=== PATIENT | female | born 1945 ===

== ENCOUNTER 2017-07-12 14:36 | Emergency (ER) | payer OTHER ==
[2017-07-12 14:36] VITALS: BMI 26.0
[2017-07-12 14:49] VITALS: TEMP 97.4; O2SAT 98
[2017-07-12 16:12] LABS: BASO % 0.6 % (0.0-2.0); EOS # 0.1 K/uL (0.0-0.7); EOS % 2.1 % (0.0-4.0); LYMPH # 1.6 K/uL (1.0-4.3); LYMPH % 24.3 % (20.0-40.0); MEAN CELL VOLUME 85.4 fL (81.0-99.0); MEAN CORPUSCULAR HEMOGLOBIN 28.5 pg (27.0-31.0); MEAN CORPUSCULAR HGB CONC 33.4 g/dL (33.0-37.0); MEAN PLATELET VOLUME 10.4 fL (7.2-11.7); MONO # 0.5 K/uL (0.0-0.8); MONO % 7.2 % (0.0-10.0); NEUT # 4.3 K/uL (1.8-7.0); NEUT % 65.8 % (50.0-75.0); RBC 5.26 Mil/uL (3.80-5.20); RED CELL DISTRIBUTION WIDTH 13.6 % (11.5-14.5); WHITE BLOOD COUNT 6.6 K/uL (4.8-10.8)
[2017-07-12 16:29] LABS: ALB/GLOB RATIO 1.3 (1.0-2.1); ALBUMIN 4.3 g/dL (3.5-5.0); ALT/SGPT 21 U/L (9-52); AST/SGOT 23 U/L (14-36); BLOOD UREA NITROGEN 14 mg/dL (7-17); GFR AFRICAN-AMERICAN > 60; GFR NON-AFRICAN AMERICAN > 60; LIPASE 69 U/L (23-300)
[2017-07-12 16:42] LABS: B-TYPE NATRIURETIC PEPTIDE 59.9 pg/mL (0-900)
--- NOTE | 2017-07-12 16:44 | C.PDOC ---
History Of Present Illness 71-year-old female, presents to the emergency department with complaints of anxiety, generalized weakness and body aches. Patient states she is feeling "fluttering" in her stomach. Patient denies nausea/vomiting, fevers or chills. All other Hx limited because patient is a poor historian Time Seen by Provider: 07/12/17 15:29 Chief Complaint (Nursing): Medical Clearance History Per: Patient Past Medical History Reviewed: Historical Data, Nursing Documentation, Vital Signs Vital Signs: Last Vital Signs Temp 97.4 F L 07/12/17 14:45 Pulse 69 07/12/17 18:37 Resp 16 07/12/17 18:37 BP 146/77 07/12/17 18:37 Pulse Ox 98 07/15/17 12:58 - Medical History PMH: Gastritis, Hypercholesterolemia Denies: Colonic Polyps, Fractures, Chronic Kidney Disease Surgical History: Denies: Endoscopy - [facility] Procedures ENDO RECTUM POLYPECTOMY (01/24/14) REPAIR CUL-DE-SAC, VIA NATURAL OR ARTIFICIAL OPENING (06/04/15) REPAIR PELVIC SUBCU/FASCIA, PERC APPROACH (06/04/15) RESECTION OF CERVIX, VIA NATURAL OR ARTIFICIAL OPENING (06/04/15) RESECTION OF UTERUS, VIA NATURAL OR ARTIFICIAL OPENING (06/04/15) Family History: States: No Known Family Hx - Social History Hx Tobacco Use: No Hx Alcohol Use: No Hx Substance Use: No - Immunization History Hx Tetanus Toxoid Vaccination: Yes Hx Influenza Vaccination: No Hx Pneumococcal Vaccination: Yes Review Of Systems Constitutional: Positive for: Weakness, Malaise. Negative for: Fever, Chills Gastrointestinal: Negative for: Nausea, Vomiting Psych: Positive for: Anxiety. Negative for: Suicidal ideation Physical Exam - Physical Exam Appears: Non-toxic, No Acute Distress Skin: Normal Color, Warm, Dry, No Rash Head: Normacephalic Eye(s): bilateral: PERRL Nose: Normal Oral Mucosa: Moist Lips: Normal Appearing Neck: Normal ROM Cardiovascular: Rhythm Regular, No Murmur Respiratory: Normal Breath Sounds, No Accessory Muscle Use Gastrointestinal/Abdominal: Normal Exam, Bowel Sounds, Soft Extremity: Normal ROM, No Deformity, No Swelling Neurological/Psych: Oriented x3, Normal Speech ED Course And Treatment - Laboratory Results Result Diagrams: 07/12/17 16:09 07/12/17 16:09 ECG: Interpreted By Me, Viewed By Me ECG Rhythm: Sinus Rhythm ECG Interpretation: No Acute Changes Rate From EC O2 Sat by Pulse Oximetry: 98 Medical Decision Making Medical Decision Making: Patient will be discharged for outpatient f/u with PMD. All questions answered. patient states resolution of symptoms, no further complaints, will discharge home to follow up with pmd in 2 days. Disposition Counseled Patient/Family Regarding: Studies Performed, Diagnosis, Need For Followup, Rx Given - Disposition Disposition: HOME/ ROUTINE Disposition Time: 18:37 Condition: STABLE Additional Instructions: follow up with your doctor in 2 days call to make an appointment take medications as prescribed return to ER if symptoms worsens or progress Prescriptions: ALPRAZolam [Xanax] 0.25 mg PO TID PRN #8 tab PRN Reason: Anxiety Famotidine [Pepcid] 20 mg PO BID #20 tab Instructions: Gastritis, Anxiety, Adult (DC) Forms: Gen Discharge Inst Swedish, [employer] (Swedish) Print Language: MONEGASQUE - Clinical Impression Clinical Impression: Nervousness, Gastritis - Scribe Statement The provider has reviewed the documentation as recorded by the Scribe (Hanh Garrett) All medical record entries made by the Scribe were at my direction and personally dictated by me. I have reviewed the chart and agree that the record accurately reflects my personal performance of the history, physical exam, medical decision making, and the department course for this patient. I have also personally directed, reviewed, and agree with the discharge instructions and disposition.
--- NOTE | 2017-07-12 17:49 | RAD ---
HISTORY: SOB COMPARISON: 05/17/2015 TECHNIQUE: Chest PA and lateral FINDINGS: LUNGS: No active pulmonary disease. PLEURA: No significant pleural effusion identified. No pneumothorax apparent. CARDIOVASCULAR: No radiographic findings to suggest acute or significant cardiovascular disease. OSSEOUS STRUCTURES: No significant abnormalities. VISUALIZED UPPER ABDOMEN: Normal. OTHER FINDINGS: None. IMPRESSION: No active disease. No significant interval change compared to the prior examination(s).
[2017-07-12 18:22] LABS: SQUAMOUS EPITHIAL 2 /hpf (0-5); URINE BACTERIA OCC (<OCC); URINE BILIRUBIN NEGATIVE (NEGATIVE); URINE BLOOD 1+ (NEGATIVE); URINE CLARITY Clear (Clear); URINE COLOR Straw (YELLOW); URINE GLUCOSE (UA) NORMAL (Normal); URINE LEUKOCYTE ESTERASE NEG Leu/uL (Negative); URINE PROTEIN NEGATIVE (NEGATIVE); URINE UROBILINOGEN NORMAL mg/dL (0.2-1.0)
[2017-07-12 18:37] VITALS: BP 146/77; PULSE 69; RESP 16
--- NOTE | 2017-07-14 23:22 | CARD ---
APPROVED REPORT EKG Measurement Heart [id number] <Conclusion> Normal sinus rhythm Normal ECG
== END 2017-07-12 19:25 | disposition home or self-care (01) ==
LOC: C.ER 14:36
DX: R45.0 Nervousness (principal); K29.70 Gastritis, unspecified, without bleeding
CPT/HCPCS: 71046; 80053; 81001; 83690; 83735; 83880; 84484; 85025; 93005; 96374; 99283; C9113

== ENCOUNTER 2018-04-15 14:15 | Emergency (ER) | payer OTHER ==
[2018-04-15 14:20] VITALS: BMI 27.1
--- NOTE | 2018-04-15 15:27 | C.PDOC ---
History Of Present Illness 72 y/o female comes in stating that for the past 4 days, shes had left-sided flank pain that radiates to LUQ. Patient denies any nausea, vomiting, diarrhea, dysuria, or hematuria. Patient does have a history of gastritis and states she had similar pain from before. Time Seen by Provider: 04/15/18 14:31 Chief Complaint (Nursing): Female Genitourinary History Per: Patient History/Exam Limitations: no limitations Onset/Duration Of Symptoms: Days Current Symptoms Are (Timing): Still Present Past Medical History Reviewed: Historical Data, Nursing Documentation, Vital Signs Vital Signs: Last Vital Signs Temp 97.7 F 04/15/18 14:20 Pulse 75 04/15/18 14:20 Resp 17 04/15/18 14:20 BP 149/84 04/15/18 14:20 Pulse Ox 100 04/15/18 14:20 - Medical History PMH: Gastritis, Hypercholesterolemia Denies: Colonic Polyps, Fractures, Chronic Kidney Disease Surgical History: Denies: Endoscopy - [facility] Procedures ENDO RECTUM POLYPECTOMY (01/24/14) REPAIR CUL-DE-SAC, VIA NATURAL OR ARTIFICIAL OPENING (06/04/15) REPAIR PELVIC SUBCU/FASCIA, PERC APPROACH (06/04/15) RESECTION OF CERVIX, VIA NATURAL OR ARTIFICIAL OPENING (06/04/15) RESECTION OF UTERUS, VIA NATURAL OR ARTIFICIAL OPENING (06/04/15) Family History: States: No Known Family Hx - Social History Hx Tobacco Use: No Hx Alcohol Use: No Hx Substance Use: No - Immunization History Hx Tetanus Toxoid Vaccination: Yes Hx Influenza Vaccination: No Hx Pneumococcal Vaccination: Yes Review Of Systems Constitutional: Negative for: Fever Cardiovascular: Negative for: Chest Pain Respiratory: Negative for: Shortness of Breath Gastrointestinal: Positive for: Other (Left-sided flank pain radiating to LUQ). Negative for: Nausea, Vomiting, Diarrhea Genitourinary: Negative for: Dysuria, Hematuria Physical Exam - Physical Exam Appears: Non-toxic, No Acute Distress Skin: Warm, Dry Head: Atraumatic, Normacephalic Eye(s): bilateral: Normal Inspection Oral Mucosa: Moist Neck: Supple Chest: Symmetrical Cardiovascular: Rhythm Regular, No Murmur Respiratory: Normal Breath Sounds, No Rales, No Rhonchi, No Wheezing Gastrointestinal/Abdominal: Soft, No Tenderness, No Guarding, No Rebound Extremity: Bilateral: Atraumatic, Normal Color And Temperature, Normal ROM Neurological/Psych: Oriented x3, Normal Speech ED Course And Treatment - Laboratory Results Result Diagrams: 04/15/18 14:50 04/15/18 14:50 O2 Sat by Pulse Oximetry: 100 (RA) Pulse Ox Interpretation: Normal Medical Decision Making Medical Decision Making: Plan: --Labs --Urinalysis --Toradol 30 mg IV --Abd/Pel CT Mild hematuria noted in UA, CT abd/pelvis ordered to evaluate for kidney stone, given that she has flank pain. All results reviewed and discussed with patient. Will write Rx for pepcid as patient states she previously took it for gastritis. Advised returning to the ED for any new or worsening symptoms. Disposition - Disposition Disposition: HOME/ ROUTINE Disposition Time: 17:55 Condition: STABLE Additional Instructions: ALLIE GARCIA, thank you for letting us take care of you today. Your provider was Adrienne Severino MD and you were treated for BACK PAIN. The emergency medical care you received today was directed at your acute symptoms. If you were prescribed any medication, please fill it and take as directed. It may take several days for your symptoms to resolve. Return to the Emergency Department if your symptoms worsen, do not improve, or if you have any other problems. Please contact your doctor or call one of the physicians/clinics you have been referred to that are listed on the Patient Visit Information form that is included in your discharge packet. Bring any paperwork you were given at dis charge with you along with any medications you are taking to your follow up visit. Our treatment cannot replace ongoing medical care by a primary care provider outside of the emergency department. Thank you for allowing the [facility] team to be part of your care today. If you had an X-Ray or CT scan: A Radiologist will review the ED reading if any change in treatment is needed we will contact you. If you had a blood, urine, or wound culture: It will take several days for the results, if any change in treatment is needed we will contact you. If you had an STI test: It will take 48 hours for the results. Please call after 1 week if you have not heard back. Prescriptions: Acetaminophen [Tylenol] 650 mg PO Q6H 7 Days capsule RX: Famotidine [Heartburn Prevention] 20 mg PO DAILY #20 tablet Instructions: Gastritis (DC) Forms: [employer] (German) Print Language: PALAUAN - Clinical Impression Clinical Impression: Left flank pain - Scribe Statement The provider has reviewed the documentation as recorded by the Zhaneibe Dinora Sandoval Provider Attestation: All medical record entries made by the Zhaneibe were at my direction and personally dictated by me. I have reviewed the chart and agree that the record accurately reflects my personal performance of the history, physical exam, medical decision making, and the department course for this patient. I have also personally directed, reviewed, and agree with the discharge instructions and disposition.
[2018-04-15 15:42] LABS: BASO % 0.5 % (0.0-2.0); EOS # 0.1 K/uL (0.0-0.7); HEMOGLOBIN 14.1 g/dL (11.0-16.0); LYMPH # 1.3 K/uL (1.0-4.3); LYMPH % 21.3 % (20.0-40.0); MEAN CORPUSCULAR HEMOGLOBIN 28.8 pg (27.0-31.0); MONO # 0.5 K/uL (0.0-0.8); MONO % 7.9 % (0.0-10.0); NEUT # 4.2 K/uL (1.8-7.0); NEUT % 69.3 % (50.0-75.0); NRBC % 0.1 % (0.0-2.0); RBC 4.89 Mil/uL (3.80-5.20); RED CELL DISTRIBUTION WIDTH 13.4 % (11.5-14.5)
[2018-04-15 15:43] LABS: MEAN CELL VOLUME 87.4 fL (81.0-99.0)
[2018-04-15 15:56] LABS: ALB/GLOB RATIO 1.6 (1.0-2.1); ALBUMIN 4.2 g/dL (3.5-5.0); ALT/SGPT 27 U/L (9-52); AST/SGOT 26 U/L (14-36); BLOOD UREA NITROGEN 13 mg/dL (7-17); CALCIUM 9.3 mg/dl (8.6-10.4); GFR NON-AFRICAN AMERICAN > 60
[2018-04-15 16:40] LABS: SQUAMOUS EPITHIAL 3 /hpf (0-5); URINE BACTERIA OCC (<OCC); URINE BILIRUBIN NEGATIVE (NEGATIVE); URINE BLOOD 1+ (NEGATIVE); URINE CLARITY Hazy (Clear); URINE COLOR Yellow (YELLOW); URINE GLUCOSE (UA) NORMAL (Normal); URINE LEUKOCYTE ESTERASE NEG Leu/uL (Negative); URINE PROTEIN NEGATIVE (NEGATIVE); URINE UROBILINOGEN NORMAL mg/dL (0.2-1.0)
--- NOTE | 2018-04-15 17:41 | CT ---
Date of service: 04/15/2018 PROCEDURE: CT Abdomen and Pelvis without intravenous contrast HISTORY: flank pain COMPARISON: 09/16/2016 TECHNIQUE: Without contrast.. Contrast dose: 0 Radiation dose: Total exam DLP = 723.43 mGy-cm. This CT exam was performed using one or more of the following dose reduction techniques: Automated exposure control, adjustment of the mA and/or kV according to patient size, and/or use of iterative reconstruction technique. FINDINGS: LOWER THORAX: Unremarkable. LIVER: Unremarkable. No gross lesion or ductal dilatation. GALLBLADDER AND BILE DUCTS: Unremarkable. PANCREAS: Unremarkable. No gross lesion or ductal dilatation. SPLEEN: Unremarkable. ADRENALS: Unremarkable. No mass. KIDNEYS AND URETERS: Right lower pole cortical cyst, 2.9 cm. No change from prior examination. No calculus. No hydronephrosis. Minimal dilatation of the left renal collecting system associated with extrarenal pelvis. Possible mild UPJ obstruction. No right hydronephrosis. No hydroureter or ureteral calculus VASCULATURE: Unremarkable. No aortic aneurysm. There is atherosclerotic calcification of the abdominal aorta. BOWEL: Sigmoid diverticulosis without evidence of diverticulitis. No bowel obstruction. No other abnormal bowel loops are identified. APPENDIX: Unremarkable. Normal appendix. PERITONEUM: Unremarkable. No free fluid. No free air. LYMPH NODES: Unremarkable. No enlarged lymph nodes. BLADDER: Unremarkable. REPRODUCTIVE: Status post hysterectomy BONES: No acute fracture. Grade 1 anterolisthesis at L4-5 without spondylolysis. OTHER FINDINGS: None. IMPRESSION: No evidence of urinary calculus. Possible mild left UPJ obstruction with minimal dilatation of the left renal collecting system and extrarenal pelvis. Please note that this is unchanged in comparison to the prior CT examination of 09/16/2016. Sigmoid diverticulosis. No evidence of diverticulitis. Status post hysterectomy. Stable right lower pole renal cortical cyst.
[2018-04-15 17:57] VITALS: BP 145/82; PULSE 74; RESP 18; TEMP 97.9
[2018-04-16 18:19] VITALS: O2SAT 100
== END 2018-04-15 18:21 | disposition home or self-care (01) ==
LOC: C.ER 14:15
DX: R10.9 Unspecified abdominal pain (principal); K29.70 Gastritis, unspecified, without bleeding; E78.00 Pure hypercholesterolemia, unspecified
CPT/HCPCS: 74176; 80053; 81001; 85025; 96374; 99285; J1885

== ENCOUNTER 2018-04-16 13:52 | Emergency (ER) | payer OTHER ==
[2018-04-16 13:52] VITALS: BMI 27.1
[2018-04-16 14:05] VITALS: BP 139/83; PULSE 80; RESP 16; TEMP 97.7; O2SAT 100
--- NOTE | 2018-04-16 14:43 | C.PDOC ---
History Of Present Illness 72 year old female presents to the emergency department with complaints of left flank pain for the last few days. Patient was evaluated in the ED yesterday, where she was given medications which provided no relief. Patient reports the pain still remains today, but it is not worse than before. She qualifies the pain as dull, and non-radiating. She denies numbness, weakness, and urinary symptoms. Time Seen by Provider: 04/16/18 14:07 Chief Complaint (Nursing): Back Pain History Per: Patient History/Exam Limitations: no limitations Onset/Duration Of Symptoms: Days Current Symptoms Are (Timing): Still Present Quality Of Discomfort: Dull, "Pain" Associated Symptoms: denies: Incontinence, New Weakness, New Numbness Past Medical History Reviewed: Historical Data, Nursing Documentation, Vital Signs Vital Signs: Last Vital Signs Temp 97.7 F 04/16/18 14:03 Pulse 80 04/16/18 14:03 Resp 16 04/16/18 14:03 BP 139/83 04/16/18 14:03 Pulse Ox 100 04/16/18 14:03 - Medical History PMH: Gastritis, Hypercholesterolemia Denies: Colonic Polyps, Fractures, Chronic Kidney Disease Surgical History: No Surg Hx Denies: Endoscopy - [facility] Procedures ENDO RECTUM POLYPECTOMY (01/24/14) REPAIR CUL-DE-SAC, VIA NATURAL OR ARTIFICIAL OPENING (06/04/15) REPAIR PELVIC SUBCU/FASCIA, PERC APPROACH (06/04/15) RESECTION OF CERVIX, VIA NATURAL OR ARTIFICIAL OPENING (06/04/15) RESECTION OF UTERUS, VIA NATURAL OR ARTIFICIAL OPENING (06/04/15) Family History: States: No Known Family Hx - Social History Hx Tobacco Use: No Hx Alcohol Use: No Hx Substance Use: No - Immunization History Hx Tetanus Toxoid Vaccination: Yes Hx Influenza Vaccination: No Hx Pneumococcal Vaccination: Yes Review Of Systems Genitourinary: Negative for: Dysuria, Frequency, Incontinence Musculoskeletal: Positive for: Back Pain (left flank) Neurological: Negative for: Weakness, Numbness Physical Exam - Physical Exam Appears: Well, Non-toxic, No Acute Distress Skin: Warm, Dry, No Rash Head: Atraumatic, Normacephalic Eye(s): bilateral: Normal Inspection Oral Mucosa: Moist Neck: Normal ROM Chest: Symmetrical Cardiovascular: Rhythm Regular, No Murmur Respiratory: Normal Breath Sounds, No Rales, No Rhonchi, No Wheezing Gastrointestinal/Abdominal: Bowel Sounds, Soft, No Tenderness, No Guarding, No Rebound Extremity: Bilateral: Atraumatic, Normal Color And Temperature, Normal ROM Neurological/Psych: Oriented x3, Normal Speech Gait: Steady ED Course And Treatment O2 Sat by Pulse Oximetry: 100 (RA) Pulse Ox Interpretation: Normal Medical Decision Making Medical Decision Making: Chart reviewed from yesterday, patient had bloodwork and CT A/P with no acute findings. Plan: Toradol 15mg IM Ultram 50mg PO On re-eval patient sitting comfortable in no distress. Reports feeling better a nd comfortable going home with Rx Disposition Counseled Patient/Family Regarding: Diagnosis, Need For Followup, Rx Given - Disposition Referrals: Alicia Boyd MD [Staff Provider] - Disposition: HOME/ ROUTINE Disposition Time: 15:05 Condition: STABLE Additional Instructions: Joseph analgsicos segn sea necesario Seguimiento con berger mdico. Prescriptions: Acetaminophen [Acetaminophen Extra Strength] 500 mg PO Q12 #30 tablet Ibuprofen [Motrin] 600 mg PO Q8 #30 tab traMADol [Ultram] 50 mg PO Q8 #15 Instructions: Low Back Pain (DC) Forms: [employer] (Burmese) Print Language: FAROESE - POA Present On Arrival: None - Clinical Impression Clinical Impression: Low back pain - PA / REED POLISHER / Resident Statement MD/DO has reviewed & agrees with the documentation as recorded. - Scribe Statement The provider has reviewed the documentation as recorded by the Scribe (Paul Brown) All medical record entries made by the Scribe were at my direction and personally dictated by me. I have reviewed the chart and agree that the record accurately reflects my personal performance of the history, physical exam, medical decision making, and the department course for this patient. I have also personally directed, reviewed, and agree with the discharge instructions and disposition.
== END 2018-04-16 15:20 | disposition home or self-care (01) ==
LOC: C.ER 13:52
DX: M54.5 Low back pain (principal)
CPT/HCPCS: 96372; 99283; J1885

== ENCOUNTER 2018-04-18 10:12 | Emergency (ER) | payer OTHER ==
[2018-04-18 10:12] VITALS: BMI 27.1
[2018-04-18 10:16] VITALS: TEMP 98.1; O2SAT 100
[2018-04-18 11:20] LABS: SQUAMOUS EPITHIAL 3 /hpf (0-5); URINE BACTERIA RARE (<OCC); URINE BILIRUBIN NEGATIVE (NEGATIVE); URINE BLOOD 1+ (NEGATIVE); URINE CLARITY Clear (Clear); URINE COLOR Straw (YELLOW); URINE GLUCOSE (UA) NORMAL (Normal); URINE LEUKOCYTE ESTERASE NEG Leu/uL (Negative); URINE PROTEIN NEGATIVE (NEGATIVE); URINE UROBILINOGEN NORMAL mg/dL (0.2-1.0)
[2018-04-18] MEDS ORDERED: Iohexol 240 (50 ml) ONE (11:26)
--- NOTE | 2018-04-18 11:36 | RAD ---
HISTORY: abd pain COMPARISON: Chest x-ray performed 07/12/17 TECHNIQUE: Chest, one view. FINDINGS: Examination limited by habitus and hypoinflation. LUNGS: No focal consolidation. Please note that chest x-ray has limited sensitivity for the detection of pulmonary masses. PLEURA: No significant pleural effusion identified. No definite pneumothorax . CARDIOVASCULAR: Heart size appears within normal limits. Atherosclerotic calcifications present. OSSEOUS STRUCTURES: Osseous demineralization. Degenerative changes. VISUALIZED UPPER ABDOMEN: Unremarkable. OTHER FINDINGS: None. IMPRESSION: No focal consolidation identified.
[2018-04-18 11:38] LABS: BASO % 0.6 % (0.0-2.0); EOS # 0.1 K/uL (0.0-0.7); HEMOGLOBIN 14.7 g/dL (11.0-16.0); LYMPH # 1.2 K/uL (1.0-4.3); LYMPH % 18.3 % (20.0-40.0); MEAN CELL VOLUME 87.4 fL (81.0-99.0); MEAN CORPUSCULAR HEMOGLOBIN 29.3 pg (27.0-31.0); MEAN CORPUSCULAR HGB CONC 33.6 g/dL (33.0-37.0); MONO # 0.5 K/uL (0.0-0.8); NEUT # 4.7 K/uL (1.8-7.0); NEUT % 73.1 % (50.0-75.0); RBC 5.01 Mil/uL (3.80-5.20); RED CELL DISTRIBUTION WIDTH 13.2 % (11.5-14.5); WHITE BLOOD COUNT 6.5 K/uL (4.8-10.8)
[2018-04-18 12:00] LABS: ALB/GLOB RATIO 1.5 (1.0-2.1); ALBUMIN 4.4 g/dL (3.5-5.0); ALT/SGPT 20 U/L (9-52); AST/SGOT 26 U/L (14-36); BLOOD UREA NITROGEN 18 mg/dL (7-17); CALCIUM 8.7 mg/dl (8.6-10.4); GFR NON-AFRICAN AMERICAN > 60; LIPASE 49 U/L (23-300)
[2018-04-18 12:02] LABS: B-TYPE NATRIURETIC PEPTIDE 109 pg/mL (0-900)
--- NOTE | 2018-04-18 12:08 | C.PDOC ---
History Of Present Illness 72 y/o female presents to the ER complaining of left flank pain which has been present for the past 5 days. Patient states that she was taking Tramadol for pain. However, she stopped taking the medication because of side effects. Denies having nausea, vomiting, dysuria, and hematuria. Time Seen by Provider: 04/18/18 10:41 Chief Complaint (Nursing): Back Pain History Per: Electronics Research Engineer (clerk Simon) History/Exam Limitations: no limitations Onset/Duration Of Symptoms: Days Past Medical History Reviewed: Historical Data, Nursing Documentation, Vital Signs Vital Signs: Last Vital Signs Temp 98.1 F 04/18/18 10:14 Pulse 77 04/18/18 10:14 Resp 20 04/18/18 10:14 BP 116/75 04/18/18 10:14 Pulse Ox 100 04/18/18 10:14 - Medical History PMH: Gastritis, Hypercholesterolemia Denies: Colonic Polyps, Fractures, Chronic Kidney Disease Surgical History: Denies: Endoscopy - [facility] Procedures ENDO RECTUM POLYPECTOMY (01/24/14) REPAIR CUL-DE-SAC, VIA NATURAL OR ARTIFICIAL OPENING (06/04/15) REPAIR PELVIC SUBCU/FASCIA, PERC APPROACH (06/04/15) RESECTION OF CERVIX, VIA NATURAL OR ARTIFICIAL OPENING (06/04/15) RESECTION OF UTERUS, VIA NATURAL OR ARTIFICIAL OPENING (06/04/15) Family History: States: No Known Family Hx - Social History Hx Tobacco Use: No Hx Alcohol Use: No Hx Substance Use: No - Immunization History Hx Tetanus Toxoid Vaccination: Yes Hx Influenza Vaccination: No Hx Pneumococcal Vaccination: Yes Review Of Systems Except As Marked, All Systems Reviewed And Found Negative. Constitutional: Negative for: Fever, Chills Gastrointestinal: Negative for: Nausea, Vomiting Genitourinary: Negative for: Dysuria, Hematuria Musculoskeletal: Positive for: Other (left flank pain) Physical Exam - Physical Exam Appears: Non-toxic, No Acute Distress Skin: Normal Color, Warm, Dry, Rash (macular hyperpigmented rash to left lower back) Head: Atraumatic, Normacephalic Eye(s): bilateral: Normal Inspection Nose: Normal Oral Mucosa: Moist Neck: Supple Chest: Symmetrical, Tenderness (left posterior inferior rib pain) Cardiovascular: Rhythm Regular Respiratory: Normal Breath Sounds, No Rales, No Rhonchi, No Wheezing Gastrointestinal/Abdominal: Soft, No Tenderness, No Guarding, No Rebound Back: CVA Tenderness (left sided CVA tenderness) Neurological/Psych: Oriented x3, Normal Speech ED Course And Treatment - Laboratory Results Result Diagrams: 04/18/18 11:21 04/18/18 11:21 O2 Sat by Pulse Oximetry: 100 (RA) Pulse Ox Interpretation: Normal - Radiology CXR: Interpreted by Me, Viewed By Me CXR Interpretation: Yes: No Acute Disease Medical Decision Making Medical Decision Making: Assessment: Flank Pain, Back Pain Plan: --Labs --UA --CXR --CT- Abd & Pelv. --Toradol IV Disposition Counseled Patient/Family Regarding: Studies Performed, Diagnosis, Need For Followup, Rx Given - Disposition Referrals: at [facility] [Outside] Mukesh Damon MD [Staff Provider] - Disposition: HOME/ ROUTINE Disposition Time: 15:24 Condition: STABLE Additional Instructions: follow up with clinic or urology within 2 days call to make an appointment take medications as prescribed return to ER if symptoms worsens or progress Prescriptions: Acetaminophen/Codeine [Tylenol/Codeine 300 MG/30 MG] 1 tab PO Q6H PRN #12 tab PRN Reason: Pain, Severe (8-10) Naproxen [Naprosyn] 500 mg PO BID PRN #16 tab PRN Reason: Pain, Moderate (4-7) Instructions: Renal Colic (DC) Forms: Gen Discharge Inst Slovak, [employer] (Slovak) Print Language: OCCITAN - Clinical Impression Clinical Impression: Renal colic - PA / MAINTENANCE CHIEF / Resident Statement MD/DO has reviewed & agrees with the documentation as recorded. - Scribe Statement The provider has reviewed the documentation as recorded by the Alicia Hernandez Provider Attestation: All medical record entries made by the Alicia were at my direction and personally dictated by me. I have reviewed the chart and agree that the record accurately reflects my personal performance of the history, physical exam, medical decision making, and the department course for this patient. I have also personally directed, reviewed, and agree with the discharge instructions and disposition.
[2018-04-18] MEDS ORDERED: Iohexol 240 (50 ml) PO ONE (12:53)
[2018-04-18] MEDS ORDERED: LIDOCAINE IV STA (14:12)
[2018-04-18] MEDS ORDERED: SODIUM CHLORIDE 0.9% IV STA (14:12)
[2018-04-18 14:18] VITALS: BP 127/77; PULSE 75; RESP 18
--- NOTE | 2018-04-18 14:24 | CT ---
PROCEDURE: CT Abdomen and Pelvis without IV contrast. HISTORY: abd pain COMPARISON: CT abdomen and pelvis without oral or IV contrast performed 04/15/18 TECHNIQUE: Contiguous axial images of the abdomen and pelvis. Oral contrast was administered. No IV contrast given. Coronal and Sagittal reformats generated and reviewed. Radiation dose: Total exam DLP = 675.43 mGy-cm. This CT exam was performed using one or more of the following dose reduction techniques: Automated exposure control, adjustment of the mA and/or kV according to patient size, and/or use of iterative reconstruction technique. FINDINGS: There is limited evaluation of the solid organs without the administration of IV contrast. LOWER THORAX: No visible consolidation, pleural effusion, or pneumothorax. Visualized portions of the heart appear within normal limits of size. Oral contrast within the included portions of the esophagus likely related to gastroesophageal reflux. LIVER: Unremarkable unenhanced appearance. GALLBLADDER AND BILE DUCTS: Unremarkable unenhanced appearance. PANCREAS: Unremarkable unenhanced appearance. SPLEEN: Unremarkable unenhanced appearance. ADRENALS: Unremarkable unenhanced appearance. KIDNEYS AND URETERS: No hydronephrosis or obstructing renal calculus. 2.9 cm exophytic low-density mass arising from the right lower pole kidney, likely cyst. Minimal dilatation of the left renal collecting system associated with extrarenal pelvis. Possible mild UPJ obstruction as on prior study. BLADDER: The urinary bladder appears unremarkable. REPRODUCTIVE: Uterus is absent consistent with hysterectomy. APPENDIX: The appendix appears within normal limits of caliber. No secondary signs of acute appendicitis. BOWEL: The stomach is nondistended. The bowel loops appear within normal limits of caliber without evidence of intestinal obstruction. Diverticulosis without CT evidence of acute diverticulitis. PERITONEUM: No significant free fluid. No definite free air. LYMPH NODES: No bulky lymphadenopathy identified. VASCULATURE: No aortic aneurysm. Atherosclerotic calcifications of the aorta. BONES: 10 mm anterolisthesis of L4 on L5. Mild multilevel degenerative changes of the spine. OTHER FINDINGS: None. IMPRESSION: Oral contrast within the included portions of the esophagus likely related to gastroesophageal reflux. 2.9 cm exophytic low-density mass arising from the right lower pole kidney, likely cyst. Minimal dilatation of the left renal collecting system associated with extrarenal pelvis. Possible mild UPJ obstruction as on prior study. Diverticulosis without CT evidence of acute diverticulitis. Additional findings as above.
== END 2018-04-18 15:50 | disposition home or self-care (01) ==
LOC: C.ER 10:12
DX: N23 Unspecified renal colic (principal); E78.00 Pure hypercholesterolemia, unspecified
CPT/HCPCS: 71045; 74176; 80053; 81001; 83690; 83880; 84484; 85025; 96374; 99285; J1885; J2001; Q9966

== ENCOUNTER 2018-07-04 11:10 | Outpatient (CLI) | payer OTHER | END 2018-07-04 11:11 | disposition home or self-care (01) | LOC: C.MAMMO 11:11 ==